=== PATIENT | female | born 1970 | race Caucasian/White ===

== ENCOUNTER 2019-10-21 17:48 | Inpatient (IN) | payer MEDICAID, SELFPAY ==
[2019-10-21] MEDS ORDERED: levETIRAcetam In NaCl (Iso-Os) 1,500 MG in Premix Bag 1 BAG IVPB SCH (18:45)
[2019-10-21] MEDS ORDERED: Cefepime 2 GM in Sodium Chloride 0.9% 100 ML IVPB SCH (18:45)
[2019-10-21 18:46] LABS: Bilirubin Negative (Negative); Blood, Urine Negative (Negative); Clarity Clear (Clear); Glucose, Urine (Dipstick) Normal (Negative); Leukocyte Negative Leu/uL (Negative); Nitrite Negative (Negative); Protein, Urine (Dipstick) 20 mg/dL (Neg-Trace); Urobilinogen Normal mg/dL (Less than 2)
[2019-10-21 18:50] LABS: Pregnancy Test - Urine (BHCG) Negative (Negative); Pregu Control Background? CLEAR/WHITE (CLR/WHITE); Pregu Control Bar Appear? YES (CONTROL BAR); Specific Gravity 1.016 (1.002-1.036)
[2019-10-21] MEDS ORDERED: Lorazepam 2 MG/ML VIAL ONE (19:02)
[2019-10-21 19:04] LABS: ALT (SGPT) 13 U/L (8-55); AST (SGOT) 21 U/L (5-34); Albumin 5.1 g/dL (3.5-5.0); Alkaline Phosphatase 53 U/L (40-110); Anion Gap 20 mmol/L (10-20); BUN (Urea Nitrogen) 14 mg/dL (7.0-18.7); Bilirubin, Total 0.2 mg/dL (0.2-1.2); Calc. Creatinine Clearance 0 mL/min (70-130); Carbon Dioxide 18 mmol/L (22-29); Chloride 107 mmol/L (98-107); Estimated GFR-MDRD 63; Globulin 3.1 g/dL (2.4-3.5); Glucose 99 mg/dL (70-105); Lipase 43 U/L (8-78); Magnesium 1.7 mg/dL (1.6-2.6); Potassium 3.5 mmol/L (3.5-5.1); Protein, Total 8.2 g/dL (6.0-8.3); Sodium 141 mmol/L (136-145)
[2019-10-21 19:20] LABS: #Lymphocytes 0.3 thou/uL (1.20-3.40); #Monocytes 0.2 thou/uL (0.11-0.59); #Neutrophils 3.5 thou/uL (1.40-6.50); %Basophils 0.9 % (0.0-1.0); %Lymphocytes 7.2 % (21.0-51.0); %Monocytes 5.1 % (0.0-10.0); %Neutrophils 85.8 % (42.0-75.0); Hemoglobin 12.6 g/dL (12.0-16.0); Mean Corpuscular Hemoglobin 31.5 pg (27.0-31.0); Mean Corpuscular Volume 92.7 fL (78.0-98.0); Mean Platelet Volume 7.5 fL (7.4-10.4); Platelet Count 217 thou/uL (130-400); RBC Distribution Width 12.8 % (11.5-14.5)
--- NOTE | 2019-10-21 19:21 | CT ---
CT Brain WO Con: 10/21/2019 6:08 PM CLINICAL HISTORY: History of seizures. IMAGING TECHNIQUE: Multiple CT images were obtained of the brain without IV contrast. COMPARISON: None. FINDINGS: Brain: No acute infarct or hemorrhage is evident. No midline shift. Ventricles: Normal. No hydrocephalus.. Skull: Intact.. Visualized Paranasal sinuses: Clear.. Mastoid air cells:Clear. Extracranial soft tissues:Normal. IMPRESSION: No acute intracranial abnormality.
--- NOTE | 2019-10-21 19:23 | RAD ---
Chest AP view INDICATION: Fever and tachycardia COMPARISON: May 26, 2012 FINDINGS: Lungs:The lungs are clear Cardiac silhouette:The cardiomediastinal silhouette appears within normal limits. Pulmonary vasculature:Normal Pleural spaces:No pleural effusion or pneumothorax is demonstrated. Upper abdomen:No abnormality seen. Osseous structures: No acute osseous abnormality. Additional findings:Stable surgical clips within the left axilla IMPRESSION: No acute cardiopulmonary abnormality.
[2019-10-21] MEDS ORDERED: Oseltamivir 75 MG CAP PO SCH (20:00)
[2019-10-21] MEDS ORDERED: Haloperidol Lactate 5 MG/ML VIAL ONE (20:26)
[2019-10-21 22:10] LABS: Lactic Acid 2.3 mmol/L (0.5-2.2)
[2019-10-21] MEDS ORDERED: Acetaminophen 500 MG TAB ONE (22:22)
[2019-10-21] MEDS ORDERED: Ondansetron PF 4 MG/2 ML Vial IVP PRN (23:39)
[2019-10-21] MEDS ORDERED: Lorazepam 2 MG/ML VIAL SLOW IVP PRN (23:48)
[2019-10-22 00:10] VITALS: BMI 21.8
[2019-10-22] MEDS: Fentanyl 100 MCG/2 ML VIAL SLOW IVP PRN ×6 (00:29→21:10)
[2019-10-22] MEDS: Acetaminophen 325 MG TAB PO PRN ×4 (00:30→21:11)
--- NOTE | 2019-10-22 02:46 | HP ---
PRIMARY CARE PHYSICIAN: Unknown. CHIEF COMPLAINT: Witnessed seizure. HISTORY OF PRESENT ILLNESS: This is a 49-year-old female, with past medical history of SLE, remote seizure disorder history, last episode 2-3 years ago, history of melanoma in remission requiring prior lymph node resection and chemotherapy, hypertension, and history of influenza A one year ago, who has been having upper respiratory tract symptoms for the past several days and today while at [employer], had a witnessed tonic-clonic seizure lasting approximately 1 minute in duration associated with bladder incontinence and postictal state, prompting further ED evaluation. According to history obtained from the patient's daughter, ER physician, and limited history from the patient, the patient has been visiting from out of town and has been having cough and congestion symptoms for the past 3 days. She has had sick contacts with family members, grand children, and for the past several days has had headaches associated with nuchal rigidity, myalgias, arthralgias, cough with congestion, and associated photophobia with nausea and mild emesis. She has been taking multiple tablets of Benadryl and ran out of Benadryl and [facility] when headaches intensified and the patient remembers having blurred vision prior to symptoms with difficulty in reading the medication bottles. Daughter notes that her mother had called her while driving as she was confused and could not find the appropriate directions. In the emergency room, Influenza antigen was positive for influenza A. Vitals revealed a T-max of 103.2. Lactic acid level was elevated at 2.9 in the notable postictal state and labs revealed chronic leukopenia of 4.0. Chemistries revealed hyperchloremic anion gap metabolic acidosis. Initial cardiac biomarkers negative x1. Urinalysis is bland. Noncontrast head CT was unremarkable as was the one view chest x-ray. The patient received 500 mg of oral Tylenol, 2 L normal saline bolus, 75 mg oral Tamiflu, 2 g IV cefepime, 1 mg IV Ativan, 1.5 g IV Keppra loading dose, and 2.5 mg of IV haloperidol. At bedside, the patient is initially mildly disoriented, but becomes more coherent during ongoing conversation. She is oriented to person, place, month, and reason for hospitalization. She continues to complain of severe headaches and notes multiple medication allergies. She feels unwell and notes this is not her baseline. She declines lumbar puncture as she has had prior complications from lumbar puncture reportedly with epidural hematoma and has also required lumbar fusion surgery and thus decision was to forego lumbar puncture. REVIEW OF SYSTEMS: Pertinent positives as per HPI. Remainder of review of systems negative. PAST MEDICAL HISTORY: SLE; prior seizure disorder history last 2-3 years ago, previously on Depakote; history of melanoma requiring prior lymph node resection and chemotherapy, in remission; hypertension; history of influenza A, prior bowel obstructions. PAST SURGICAL HISTORY: L4-L5 fusion surgically, cystectomy, hysterectomy, appendectomy. SOCIAL HISTORY: The patient is visiting from out of state. She denies tobacco, alcohol, or illicit drug use. She is ambulatory and functional at baseline. ALLERGIES: EXTENSIVE AND ARE NOT INCLUSIVE BUT INCLUDE STEROIDS, NSAIDS, DEXTROMETHORPHAN, GUAIFENESIN, PENICILLIN, CIPROFLOXACIN, ERYTHROMYCIN, AND MORPHINE. HOME MEDICATIONS: Currently unavailable. We will review once admission medication reconciliation is available. FAMILY HISTORY: Unable to obtain from the patient at this time. PHYSICAL EXAMINATION: VITAL SIGNS: T-max 103.2, pulse 117, respirations 18, blood pressure 143/93, oxygen saturation 100% on room air. GENERAL APPEARANCE: This is a middle-aged female, malaise in appearance and notably uncomfortable, is awake, alert, and oriented. HEENT: Normocephalic, atraumatic. No facial asymmetry. Pupils equally round. Extraocular muscles intact. There is noted photophobia. Dry oral mucous membranes. NECK: There is posterior neck tenderness to palpation. CARDIOVASCULAR SYSTEM: S1, S2. Tachycardic. No harsh murmurs. There is anterior chest wall tenderness to palpation. LUNGS: Nonlabored respiration on bilateral anterior auscultation. Symmetrical chest expansion. No wheezing or rales. ABDOMEN: Soft, nondistended, nonspecific tenderness. Bowel sounds noted. No peritoneal signs appreciated. EXTREMITIES: No edema, cyanosis, or deformities noted. Generalized arthralgias and myalgias appreciated. SKIN: Warm to touch without rash or pallor or abrasion. No petechiae noted. LABORATORY VALUES: WBC 4.0, H and H 12.6/37.0, platelets 217. Sodium 141, potassium 3.5, chloride 107, bicarb 18, glucose 99, BUN and creatinine 14/0.94. Lactic acid initially 2.9, with repeat 2.3. LFTs unremarkable. Troponin negative x1. Albumin 5.1. Urinalysis unremarkable. IMAGING STUDIES: Noncontrast head CT unremarkable. One-view chest x-ray with no acute pathology. Influenza antigen positive for influenza A. ASSESSMENT: 1. Acute encephalopathy, suspected secondary to seizures and possibly acute meningitis. The patient will be admitted as inpatient status and admitted to stroke telemetry floor and will require ongoing monitoring of mentation with seizure precautions. She notes a prior history of strokes last 2-3 years ago and reports prodromal complaints of upper respiratory infection symptoms and is finally positive for influenza . Meningitis of unspecified type has been considered and the patient has refused lumbar puncture due to prior complications from spinal tap complicated with epidural hematoma and reportedly spinal fusion surgery. 2. Sepsis secondary to acute influenza A infection with possible viral meningitis. The patient has received early goal-directed therapy with IV fluid bolus, broad-spectrum IV antibiotics, and antiviral agents. Continue Tamiflu 75 mg twice daily, empiric IV antibiotics for bacterial meningitis coverage and multiple antibiotic allergies are also of note. We will consult ID for further antimicrobial and antiviral management. 3. Suspected meningitis. Viral meningitis is considered noting the patient's prodromal complaints, new onset seizures, and concerns for influenza A. However, with hives, fevers and history of systemic lupus erythematosus, although not on immune suppressants, we will broaden coverage to vancomycin and Rocephin for any bacterial meningitis. Noncontrast head CT unremarkable. We will consult ID for further management. 4. Seizures of unspecified etiology. The patient notes history of seizure disorder, last 2-3 years ago. Previously she was on Depakote. She received Keppra loading dose in the ER. On-call neurologist will be consulted for further management. We will maintain on seizure precautions. Continue p.r.n. IV Ativan for any breakthrough seizures. 5. History of systemic lupus erythematosus. The patient reports she is not on any immune suppressing agents due to multiple allergies. 6. History of melanoma requiring prior lymph node resection and chemotherapy in remission. 7. History of multiple antibiotic allergies. 8. Deep venous thrombosis prophylaxis: Continue on bilateral lower extremity sequential compression devices. 9. Check a.m. labs, 10/22/2019. 10. Code status: Full code. 11. Disposition: Inpatient admission on telemetry monitoring. Job ID: [id number]
[2019-10-22] MEDS: cefTRIAXone\\ROCEPHIN 2 GM in Sodium Chloride 0.9% 100 ML IVPB SCH ×2 (04:27→17:19)
[2019-10-22 05:37] LABS: Anion Gap 20 mmol/L (10-20); BUN (Urea Nitrogen) 12 mg/dL (7.0-18.7); Calc. Creatinine Clearance 80 mL/min (70-130); Calcium 8.7 mg/dL (7.8-10.44); Carbon Dioxide 12 mmol/L (22-29); Chloride 113 mmol/L (98-107); Estimated GFR-MDRD 79; Glucose 92 mg/dL (70-105); Potassium 3.6 mmol/L (3.5-5.1); Sodium 141 mmol/L (136-145)
[2019-10-22 07:34] LABS: Hemoglobin 11.8 g/dL (12.0-16.0); Mean Corpuscular HGB CONC 34.1 g/dL (32.0-36.0); Mean Corpuscular Volume 93.6 fL (78.0-98.0); Mean Platelet Volume 7.4 fL (7.4-10.4); Platelet Count 189 thou/uL (130-400); Red Blood Cell (RBC) Count 3.69 mill/uL (4.20-5.40); White Blood Cell (WBC) Count 5.9 thou/uL (4.8-10.8)
[2019-10-22 07:48] LABS: Band 2 % (5-11); Lymphocytes 6 % (21-51); MDiff Complete? YES; Monocytes 6 % (0-10); Neutrophil 84 % (42-75); Platelet Morphology Comment Appears Adequate; Reactive Lymphocytes 2 % (0-10); Vacuoles SLIGHT
[2019-10-22] MEDS: Oseltamivir 75 MG CAP PO SCH ×2 (08:44→21:11)
--- NOTE | 2019-10-22 11:11 | CON ---
DATE OF TELEMEDICINE CONSULTATION: 10/22/2019 CHIEF COMPLAINT: Headache and feeling sick. HISTORY OF PRESENT ILLNESS: The patient gives limited medical history, but she reports she has had a diagnosis of lupus for a number of years. She has been having three days of congestion and had a seizure again. Her last seizure was about three years ago. She used to be on Depakote at that time and it was stopped, because she stopped having seizures. She does have history of upper respiratory symptoms for the past several days and now is thought to be positive for flu. She had melanoma in remission in the past requiring lymph node resection and chemotherapy. She also has hypertension. At this time, she is reporting she is sick. She feels sick. She has a headache, mostly on the right side with no other neurological deficits. No dizziness or nausea, vomiting, or any weakness reported. No vision symptoms are reported. The patient has been reported to have some confusion during conversation and there is a suspicion that she might have meningitis due to presence of several days of headaches and at this time she is resting, but looks sick. PREVIOUS MEDICAL HISTORY: SLE; prior seizure disorder, last seizure three years ago, she was on Depakote; history of melanoma, requiring prior lymph node dissection and chemotherapy; hypertension; history of influenza A; prior bowel obstruction. 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 SURGICAL HISTORY: L4-L5 fusion, cystectomy, hysterectomy, appendectomy, and melanoma resection. SOCIAL HISTORY: She is from [place], [place] and her daughter moved here and has been living here, therefore, she was visiting her daughter. She does not smoke or drink alcohol. She is very normal and functional at baseline. She had multiple hospitalization per her own history. ALLERGIES: SHE IS ALLERGIC TO STEROIDS, NSAIDS, DEXTROMETHORPHAN, GUAIFENESIN, PENICILLIN, CIPROFLOXACIN, ERYTHROMYCIN, AND MORPHINE. MEDICATIONS: At home, she could recall that she is taking Neurontin at home. Medications per chart as noted. FAMILY HISTORY: Negative for any autoimmune disorder. REVIEW OF SYSTEMS: PULMONARY: Negative for shortness of breath. Positive for cough. GI: Negative for nausea, vomiting, or diarrhea. NEUROLOGICAL: Positive for headache on the right side and feeling sick. DERMATOLOGIC: Negative for any skin lesions. OPHTHALMOLOGIC: Negative for any vision problems. CARDIAC: Negative for palpitations. LABORATORY DATA: Her lab workup right now, white count 5.9, hemoglobin 11.8, hematocrit 34.5, platelet count 189. Chemistry; sodium 141, potassium 3.6, chloride 113, bicarb 12, BUN 12, creatinine 0.77, and her urinalysis is negative. PHYSICAL EXAMINATION: VITAL SIGNS: Temperature 99.7, pulse 108, respiratory rate 20, O2 sats 97%, blood pressure 153/84. GENERAL APPEARANCE: She looks sick and reports she is having constant headaches. She has duncan on the left arm. She may have prior history of cutting herself. CHEST: Clear vesicular breathing. CARDIOVASCULAR: S1, S2 heard. No murmurs. NEUROLOGICAL: Higher intellectual functions, normal orientation to time, place , and person, although she tends to get a little confused. Eventually, she got the month and date approximately right, she states that it was October, and orientation to place was accurate. Cranial nerves 2 through 12 normal extraocular movements. Tongue midline. No atrophy noted. Pupils 4 mm bilaterally. Sensation of face is normal. Normal hearing to finger rub. No facial asymmetry noted, and motor bulk normal. Tone normal. Strength is preserved throughout at 5/5. Deep tendon reflexes were absent. Sensory was normal. Cerebellar, normal [id number]. IMPRESSION: The patient is a 49-year-old lady, who is positive for flu and is under precautions at this time and her complaints are mostly upper respiratory infection along with a headache. She is on Neurontin and Keppra was introduced to the hospital for seizure prophylaxis and at this time, her neurological examination in general is normal; however, she has neck rigidity on exam and her head is tender to touch throughout. She might have some issues with her lupus resurfacing, and in the setting of influenza, some patients can have headaches and myalgias as well. The diagnosis is most consistent with mild encephalopathy likely secondary to influenza A and lupus. RECOMMENDATIONS: 1. Obtain MRI of the brain with and without gadolinium to make sure there is no active inflammation in the [employer] from her lupus. 2. Please proceed with great caution if considering lumbar puncture. The patient does not appear to be disoriented. She might have some meningismus on exam, but she has influenza A which can cause mild confusion. At this time, I am not 100% sure she has meningitis. If there is no other source of infection, we can certainly consider lumbar puncture, but with her previous history of having had spinal cord trauma, it might be high risk. 3. We will follow up the patient with you. Job ID: [id number] [facility]
--- NOTE | 2019-10-22 11:52 | PDOC.HOSPP ---
- Subjective Encounter Date: 10/22/19 Encounter Time: 11:49 Subjective: Ms. Panchal was seen today in follow-up of headache, and altered mental status. She continues to have a headache. She says it started 3 days ago. She notes some photophobia, but no nausea or vomiting. She also notes body aches, and is requesting Dilaudid , as she says the Fentanyl is not helping. - Objective Vital Signs & Weight: Vital Signs (12 hours) Temp Pulse Resp BP BP Pulse Ox 10/22/19 07:38 99.7 F H 108 H 20 153/84 H 97 10/22/19 04:00 99.8 F H 97 16 122/87 96 10/22/19 00:57 100 10/22/19 00:09 103.2 F H 117 H 18 142/93 H 100 Weight Weight 127 lb 1.6 oz I&O: 10/21/19 10/22/19 10/23/19 06:59 06:59 06:59 Output Total 650 Balance -650 Result Diagrams: 10/22/19 07:15 10/22/19 05:04 Hospitalist ROS - Medication Medications: Active Medications Generic Name Dose Route Start Last Admin Trade Name Freq PRN Reason Stop Dose Admin Acetaminophen 650 mg 10/21/19 23:39 10/22/19 07:40 Tylenol PO 650 mg Q4H PRN Administration Headache/Fever/Mild Pain (1-3) Fentanyl 25 mcg 10/21/19 23:42 10/22/19 08:44 Sublimaze SLOW IVP 25 mcg Q4H PRN Administration Severe Pain (7-10) Ceftriaxone Sodium 2 gm/ 100 mls @ 200 mls/hr 10/22/19 04:00 10/22/19 04:27 Sodium Chloride IVPB 100 mls Q12H LIDIA Administration Oseltamivir Phosphate 75 mg 10/22/19 09:00 10/22/19 08:44 Tamiflu PO 10/26/19 21:01 75 mg BID LIDIA Administration - Exam General Appearance: NAD, awake alert Eye: PERRL, anicteric sclera Neck: supple Heart: RRR, no murmur, no gallops, no rubs, normal peripheral pulses Respiratory: CTAB, no wheezes, no rales, no ronchi, normal chest expansion, no tachypnea, normal percussion Gastrointestinal: soft, non-tender, non-distended, normal bowel sounds, no palpable masses, no hepatomegaly Extremities: no cyanosis, no clubbing, no edema Skin: normal turgor Hosp A/P (1) Metabolic encephalopathy Code(s): G93.41 - METABOLIC ENCEPHALOPATHY Status: Acute (2) Influenza A Code(s): J10.1 - FLU DUE TO OTH IDENT INFLUENZA VIRUS W OTH RESP MANIFEST Status: Acute (3) Headache Code(s): R51 - HEADACHE Status: Acute (4) Fever Code(s): R50.9 - FEVER, UNSPECIFIED Status: Acute (5) Hypertension Code(s): I10 - ESSENTIAL (PRIMARY) HYPERTENSION Status: Acute - Plan * Metabolic encphalopathy- resolved * Headache- ? etiology- will await MRI- She says she is allergic to IVP dye- she is not sure if it is from a CT scan or MRI- as a precaution will place her on the IV contrast allergy protocol, and pursue the MRI tomorrow * Influenza- continue Tamiflu * HTN- blood pressure is a bit elevated- but labile- re-start Carvedilol and have Hydralazine available for PRN
[2019-10-22] MEDS ORDERED: hydrALAZINE 25 MG TAB PO PRN (11:57)
[2019-10-22] MEDS: Acetaminophen/Codeine 30-300mg Tablet PO PRN (14:50)
[2019-10-22] MEDS: Gabapentin 400 MG CAP PO SCH ×2 (14:50→21:11)
--- NOTE | 2019-10-22 20:51 | CON ---
DATE OF CONSULTATION: REASON FOR CONSULTATION: Evaluate for possible meningitis. HISTORY OF PRESENT ILLNESS: A 49-year-old with history of stage IV melanoma diagnosed about 13 years ago. At that time, she had a lesion in the arm. She had radical resection and had a lymph node metastases in the left axillary region that was resected as well. After that, she had another melanoma in the skin of the right back, which was taken out and since then, has not had any evidence of recurrence. Also, the patient has chronic seizure history for many many years without any obvious etiology, and she had been on Tegretol and had been in remission of the seizures for the past 3 years. She lives next to [place], [place] and came to visit family members. One of them had influenza and she contracted influenza, for which she had not been vaccinated this year. She developed respiratory illness for the past 4 days and went to [facility] to get some medication and had a seizure activity, was brought to the hospital and admitted. Currently, she is awake. She is having moderate to severe headaches. No visual symptoms. No neck pain. No sore throat, odynophagia, or dysphagia. No back pain. Coughing intermittently. No dyspnea. No chest pain. No abdominal pain or diarrhea. No genitourinary symptoms. No other joint symptoms. MEDICAL HISTORY: Malignant melanoma with lymph node metastases, left axillary region, in remission for the past 13 years. She had another area of melanoma limited to the skin in the right back skin area. Also history of chronic seizure activity, possibly due to systemic lupus erythematosus, although this is not well documented. Some form of colitis, either Crohn's or ulcerative colitis. Mitral valve prolapse. Had a previous spinal tap done many years ago for seizure evaluation and that resulted in CSF leak. She had a patch placed and there was an accidental puncture of the arterial structures in the area and she ended up with compression of the spinal cord and had to have emergency surgical decompression elsewhere. ALLERGIES: CIPRO, COMPAZINE, DEMEROL, ERYTHROMYCIN, MORPHINE, NSAIDS, PENICILLIN, STADOL, TIGAN, AND TORADOL. FAMILY HISTORY: Noncontributory. SOCIAL HISTORY: She does not work at the moment. CURRENT MEDICATIONS: 1. P.r.n. medications. 2. Ceftriaxone. 3. Benadryl. 4. Sublimaze. 5. Neurontin. 6. Apresoline. 7. Keppra. 8. Ativan. 9. Tamiflu. 10. Prednisone. PHYSICAL EXAMINATION: VITAL SIGNS: T-max 103, she is now 99.8; blood pressure 130/83; pulse 78; respirations 16; and O2 saturation 96%. GENERAL: She is alert, oriented, follows commands, pleasant. HEENT: Ocular movements are conjugate. Pupils are equal. Conjunctivae normal. Nasal passages are patent. Oral cavity normal. Numerous teeth in place, in fairly decent shape. NECK: Supple. LUNGS: Symmetric. Clear breath sounds. HEART: S1 and S2, regular rate. ABDOMEN: Soft, not distended or tender. No ascites. : No bladder distention. MUSCULOSKELETAL: No joint inflammatory activity. EXTREMITIES: Moves extremities equally. NEUROLOGIC: Normal neuro examination including cognitive function. LABORATORY STUDIES: White cell count was 4.0 and now 5.9, hemoglobin 11.8, and platelets 189 with 84% neutrophils. Carbon dioxide 18. Liver profile normal. Lactic acid, 2.9 and 2.3. Albumin 5.1. Urinalysis was normal. Influenza was positive for A. Two sets of blood cultures, thus far no growth. IMAGING DATA: She had a chest x-ray, which showed no acute findings. Brain CT with no acute intracranial abnormality. ASSESSMENT: 1. History of stage IV melanoma without evidence of recurrence since 13 years ago. 2. Chronic seizure activity, presumably due to systemic lupus erythematosus, on Tegretol, in remission for 3 years until now. 3. Influenza A infection, recently acquired from family member most likely. 4. Concern with meningitis. DISCUSSION: Typically with bacterial meningitis, there is prompt change in mental status and she is right now widely alert and awake and oriented. She does not have neck stiffness, and I think that the hypothesis of bacterial meningitis is unlikely. Influenza A and B can cause encephalitis, but she does not have any evidence of that. The seizure activity is probably a recurrence from the past history of epilepsy. The history of systemic lupus is not well documented, and she had not been on any immunosuppressive medication on admission. At this point, I would discontinue Rocephin. I would not recommend CSF evaluation at this moment. It looks like she has an MRI scheduled. I guess the main concern would be a melanoma, metastatic to brain and I think it is worthwhile to rule that out. Melanoma can be associated with aseptic meningitis. We will follow up the results of the MRI and go from there. Job ID: [id number] [facility]
[2019-10-22] MEDS ORDERED: predniSONE 50 MG TAB PO SCH (21:00)
[2019-10-22] MEDS: Carvedilol 6.25 MG TAB PO SCH (21:11)
[2019-10-22] MEDS ORDERED: diphenhydrAMINE 50 MG/ML VIAL IVP SCH (22:00)
[2019-10-23] MEDS: Fentanyl 100 MCG/2 ML VIAL SLOW IVP PRN ×5 (01:08→19:52)
[2019-10-23] MEDS ORDERED: diphenhydrAMINE 50 MG/ML VIAL IVP SCH ×2 (04:45→12:15)
[2019-10-23] MEDS: predniSONE 50 MG TAB PO SCH ×2 (05:06→13:01)
[2019-10-23] MEDS ORDERED: diphenhydrAMINE 50 MG CAP PO SCH (09:00)
[2019-10-23] MEDS: Gabapentin 400 MG CAP PO SCH ×3 (09:13→23:01)
[2019-10-23] MEDS: Carvedilol 6.25 MG TAB PO SCH ×2 (09:13→23:01)
[2019-10-23] MEDS: Oseltamivir 75 MG CAP PO SCH ×2 (09:14→23:15)
--- NOTE | 2019-10-23 10:48 | PDOC.HOSPP ---
- Subjective Encounter Date: 10/23/19 Encounter Time: 10:47 Subjective: Ms. Panchal was seen today in follow-up of seizure, and headache and fever. She appears much better today. She is sitting up in bed, not in a position like yesterday. She continues to note a headache, but admits she does feel better. - Objective Vital Signs & Weight: Vital Signs (12 hours) Temp Pulse Resp BP BP Pulse Ox 10/23/19 09:13 148/84 H 10/23/19 04:00 99.3 F 71 14 118/78 96 10/23/19 00:00 99.6 F 83 18 122/89 94 L Weight Weight 127 lb 1.6 oz I&O: 10/22/19 10/23/19 10/24/19 06:59 06:59 06:59 Intake Total 410 485 Output Total 071 288 9559 Balance -650 -340 -515 Result Diagrams: 10/22/19 07:15 10/22/19 05:04 Hospitalist ROS - Medication Medications: Active Medications Generic Name Dose Route Start Last Admin Trade Name Freq PRN Reason Stop Dose Admin Acetaminophen 650 mg 10/21/19 23:39 10/22/19 21:11 Tylenol PO 650 mg Q4H PRN Administration Headache/Fever/Mild Pain (1-3) Acetaminophen/Codeine Phosphate 1 tab 10/22/19 13:51 10/22/19 14:50 Tylenol #3 PO 1 tab BIDPRN PRN Administration Pain Carvedilol 12.5 mg 10/22/19 21:00 10/23/19 09:13 Coreg PO 12.5 mg BID LIDIA Administration Fentanyl 25 mcg 10/21/19 23:42 10/23/19 09:14 Sublimaze SLOW IVP 25 mcg Q4H PRN Administration Severe Pain (7-10) Gabapentin 800 mg 10/22/19 15:00 10/23/19 09:13 Neurontin PO 800 mg TID LIDIA Administration Levetiracetam 500 mg/ Device 100 mls @ 200 mls/hr 10/22/19 21:00 10/23/19 09: 12 IVPB 100 mls BID LIDIA Administration Oseltamivir Phosphate 75 mg 10/22/19 09:00 10/23/19 09:14 Tamiflu PO 10/26/19 21:01 75 mg BID LIDIA Administration Prednisone 50 mg 10/23/19 05:15 10/23/19 05:06 Prednisone PO 10/23/19 11:16 50 mg [id number] LIDIA Administration - Exam Eye: PERRL, anicteric sclera Heart: RRR, no murmur, no gallops, no rubs, normal peripheral pulses Respiratory: CTAB, no wheezes, no rales, no ronchi, normal chest expansion, no tachypnea, normal percussion Gastrointestinal: soft, non-tender, non-distended, normal bowel sounds, no palpable masses, no hepatomegaly Extremities: no cyanosis, no edema Neurological: no focal deficits Psychiatric: normal affect, normal behavior, A&O x 3 Hosp A/P (1) Metabolic encephalopathy Code(s): G93.41 - METABOLIC ENCEPHALOPATHY Status: Acute (2) Influenza A Code(s): J10.1 - FLU DUE TO OTH IDENT INFLUENZA VIRUS W OTH RESP MANIFEST Status: Acute (3) Headache Code(s): R51 - HEADACHE Status: Acute (4) Fever Code(s): R50.9 - FEVER, UNSPECIFIED Status: Acute (5) Hypertension Code(s): I10 - ESSENTIAL (PRIMARY) HYPERTENSION Status: Acute - Plan * Metabolic encphalopathy- resolved * Headache- suspect due to Influenza A * MRI is planned for today * ID input appreciated * Influenza- continue Tamiflu * HTN- blood pressure is better today
[2019-10-23] MEDS: Lorazepam 2 MG/ML VIAL SLOW IVP PRN ×2 (13:59→22:15)
[2019-10-23] MEDS: Acetaminophen/Codeine 30-300mg Tablet PO PRN (18:29)
[2019-10-23] MEDS: Zolpidem Tartrate 5 MG TAB PO PRN (23:01)
[2019-10-23] MEDS: Acetaminophen 325 MG TAB PO PRN (23:14)
[2019-10-24] MEDS: Fentanyl 100 MCG/2 ML VIAL SLOW IVP PRN ×5 (00:26→19:23)
[2019-10-24] MEDS: Acetaminophen 325 MG TAB PO PRN ×3 (03:16→16:23)
[2019-10-24] MEDS: Acetaminophen/Codeine 30-300mg Tablet PO PRN ×2 (07:12→20:58)
--- NOTE | 2019-10-24 09:02 | PDOC.HOSPP ---
- Subjective Encounter Date: 10/24/19 Encounter Time: 09:00 Subjective: Ms. Anderson was seen today in follow-up of Headache fever, and influenza. She was not able to do the MRI due to too much motion. She says her legs were jerking due to the Benadryl. - Objective Vital Signs & Weight: Vital Signs (12 hours) Temp Pulse Resp BP Pulse Ox 10/24/19 07:59 98.1 F 72 16 156/104 H 98 10/23/19 23:09 97.5 F L 65 16 159/61 H 94 L Weight Weight 127 lb 1.6 oz I&O: 10/23/19 10/24/19 10/25/19 06:59 06:59 06:59 Intake Total 410 485 Output Total 750 1000 Balance -340 -515 Result Diagrams: 10/22/19 07:15 10/22/19 05:04 Hospitalist ROS - Medication Medications: Active Medications Generic Name Dose Route Start Last Admin Trade Name Freq PRN Reason Stop Dose Admin Acetaminophen 650 mg 10/21/19 23:39 10/24/19 04:35 Tylenol PO 650 mg Q4H PRN Administration Headache/Fever/Mild Pain (1-3) Acetaminophen/Codeine Phosphate 1 tab 10/22/19 13:51 10/24/19 07:12 Tylenol #3 PO 1 tab BIDPRN PRN Administration Pain Carvedilol 12.5 mg 10/22/19 21:00 10/23/19 23:01 Coreg PO 12.5 mg BID LIDIA Administration Fentanyl 25 mcg 10/21/19 23:42 10/24/19 04:36 Sublimaze SLOW IVP 25 mcg Q4H PRN Administration Severe Pain (7-10) Gabapentin 800 mg 10/22/19 15:00 10/23/19 23:01 Neurontin PO 800 mg TID LIDIA Administration Levetiracetam 500 mg/ Device 100 mls @ 200 mls/hr 10/22/19 21:00 10/23/19 22: 20 IVPB 100 mls BID LIDIA Administration Lorazepam 2 mg 10/22/19 13:50 10/23/19 22:15 Ativan SLOW IVP 2 mg Q8HR PRN Administration Anxiety/Agitation Oseltamivir Phosphate 75 mg 10/22/19 09:00 10/23/19 23:15 Tamiflu PO 10/26/19 21:01 75 mg BID LIDIA Administration Zolpidem Tartrate 10 mg 10/23/19 22:45 10/23/19 23:01 Ambien PO 10 mg HS PRN Administration Insomnia - Exam Eye: PERRL, anicteric sclera Heart: RRR, no murmur, no gallops, no rubs, normal peripheral pulses Respiratory: CTAB, no wheezes, no rales, no ronchi, normal chest expansion, no tachypnea, normal percussion Gastrointestinal: soft, non-tender, non-distended, normal bowel sounds, no palpable masses, no hepatomegaly Extremities: no cyanosis, no edema Neurological: no focal deficits, no new deficit Hosp A/P (1) Metabolic encephalopathy Code(s): G93.41 - METABOLIC ENCEPHALOPATHY Status: Acute (2) Influenza A Code(s): J10.1 - FLU DUE TO OTH IDENT INFLUENZA VIRUS W OTH RESP MANIFEST Status: Acute (3) Headache Code(s): R51 - HEADACHE Status: Acute (4) Fever Code(s): R50.9 - FEVER, UNSPECIFIED Status: Acute (5) Hypertension Code(s): I10 - ESSENTIAL (PRIMARY) HYPERTENSION Status: Acute - Plan * Metabolic encphalopathy- resolved * Headache- suspect due to Influenza A * She was unable to do the MRI * She is clinically stable and there are no danger symptoms with regards to her headache * She has a Primary Care Physician in [facility], ( she says she is visiting her daughter here locally) and she can follow-up with her physician for an outpatient MRI * She is threatening to leave A, and also requesting Fentanyl again according to the nurse- will await Neurology input, and i anticipate discharge home today
[2019-10-24] MEDS: Carvedilol 6.25 MG TAB PO SCH ×2 (09:06→20:59)
[2019-10-24] MEDS: Gabapentin 400 MG CAP PO SCH ×3 (09:07→20:59)
[2019-10-24] MEDS: Oseltamivir 75 MG CAP PO SCH ×2 (09:07→20:59)
--- NOTE | 2019-10-24 09:55 | PDOC.EVN ---
Event Note - Event Note Event Note: Discussed with Neurology- will try again for the MRI, with pre-medication protocol for allergy again and will need sedation under anesthesia.
[2019-10-24] MEDS ORDERED: Benzonatate 100 MG CAP PO PRN (15:58)
[2019-10-24] MEDS: levETIRAcetam 500 MG TAB PO SCH (20:59)
[2019-10-24] MEDS: Zolpidem Tartrate 5 MG TAB PO PRN (22:01)
[2019-10-24] MEDS ORDERED: diphenhydrAMINE 50 MG/ML VIAL IVP SCH (23:30)
[2019-10-25] MEDS: Fentanyl 100 MCG/2 ML VIAL SLOW IVP PRN ×4 (00:35→15:00)
[2019-10-25] MEDS: predniSONE 50 MG TAB PO SCH ×3 (00:36→12:03)
[2019-10-25] MEDS: Lorazepam 2 MG/ML VIAL SLOW IVP PRN ×2 (02:01→10:14)
[2019-10-25] MEDS ORDERED: diphenhydrAMINE 50 MG/ML VIAL IVP SCH ×2 (05:30→12:00)
[2019-10-25] MEDS: Acetaminophen/Codeine 30-300mg Tablet PO PRN (06:17)
[2019-10-25] MEDS: Gabapentin 400 MG CAP PO SCH ×2 (08:50→15:02)
[2019-10-25] MEDS: Carvedilol 6.25 MG TAB PO SCH (08:50)
[2019-10-25] MEDS: levETIRAcetam 500 MG TAB PO SCH (08:50)
[2019-10-25] MEDS ORDERED: Oseltamivir 75 MG CAP PO SCH (09:00)
[2019-10-25] MEDS ORDERED: PROPOFOL 200 MG/20 ML VIAL ONE (09:49)
[2019-10-25] MEDS ORDERED: SUGAMMADEX SODIUM 200 MG/2 ML VIAL ONE (12:36)
[2019-10-25] MEDS ORDERED: Midazolam HCl 2 mg/2 ml Vial ONE (12:36)
[2019-10-25] MEDS ORDERED: Fentanyl 100 MCG/2 ML VIAL ONE (12:36)
[2019-10-25] MEDS ORDERED: Dexamethasone 4 mg/ml Vial ONE (12:36)
[2019-10-25] MEDS ORDERED: hydrALAZINE 20 MG/ML VIAL ONE (14:31)
[2019-10-25 15:09] VITALS: TEMP 98
--- NOTE | 2019-10-25 15:12 | MRI ---
Exam: Brain MRI with and without contrast HISTORY: Melanoma. Lupus. Seizure. COMPARISON: None FINDINGS: Gradient echo sequence: No hemorrhage Calvarium: Appropriate T1 marrow signal intensity Midline brain parenchyma: Unremarkable Cerebrum:No parenchymal mass, mass effect or midline shift. Brain volume, age-appropriate. Cortical g ray-white matter differentiation is preserved. No significant T2 or FLAIR white matter hyperintensities. Symmetric signal intensity of the hippocampi. No evidence of mesial temporal sclero sis. Ventricles: No evidence of hydrocephalus. Sinuses and mastoid air cells: Mild mucosal thickening of the ethmoid air cells. Adequate mastoid air cell aeration Diffusion: Central arterial flow is maintained. Absent restricted diffusion. 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 No path ologic enhancement of the brain parenchyma. IMPRESSION: 1. No pathologic enhancement the brain parenchyma 2. No evidence of mesial temporal sclerosis.
[2019-10-25 16:05] VITALS: BP 122/81
--- NOTE | 2019-10-25 18:47 | DIS ---
DATE OF ADMISSION: 10/21/2019 DATE OF DISCHARGE: 10/25/2019 DISCHARGE DISPOSITION: Home. DISCHARGE DIAGNOSES: 1. Influenza A. 2. Metabolic encephalopathy secondary to influenza. 3. Seizure. 4. Hypertension. 5. History of previous bowel obstruction. DISCHARGE MEDICATIONS: She is to continue: 1. Carvedilol 12.5 mg twice daily. 2. Tylenol No. 3 as needed. 3. Gabapentin 800 mg t.i.d. 4. Ambien 10 mg at bedtime. 5. Keppra 750 mg p.o. twice a day. PROCEDURES DONE DURING ADMISSION: The patient had a CT scan of the brain, which was negative for any acute intracranial abnormality. The patient also had an MRI of the brain showing no pathological enhancement of the brain parenchyma. No evidence of mesial temporal sclerosis. CODE STATUS: Full code. ALLERGIES: PREDNISONE, CIPRO, ERYTHROMYCIN BASE, MORPHINE, COMPAZINE, NSAIDS, AND IV DYE. HOSPITAL COURSE: Ms. Panchal is a pleasant 49-year-old female who presented to the emergency room after she developed high fever as well as had a seizure while in a department store. She was admitted and the initial concern was for meningitis with a fever and seizure and altered mental status. The patient was offered a lumbar puncture in the ER, which she refused. However, over of the course of the next few days, she actually began to clinically improve. She was placed initially on empiric IV antibiotics to cover for the usual meningitis pathogens for her age. ID was consulted and by this time, she was much improved and it was felt that meningitis was an unlikely etiology. However, she did have a history of malignant melanoma and for this reason, she was held in the hospital until she could undergo an MRI. She has a history of allergy to IV contrast and for this reason, she had to be premedicated for the MRI. The MRI turned out to be negative. She was also found to be influenza A positive and this is likely the culprit for the high fever and even the seizure. However as a precaution, she will be sent home on Keppra 750 mg twice daily and she is to follow up with her primary care physician in her local town in [place], [place]. Job ID: [id number]
--- NOTE | 2019-10-25 22:21 | CON ---
DATE OF CONSULTATION: 10/25/2019 CONSULTING PHYSICIAN: Hospitalist Service. IMPRESSION: 1. Recurrent seizure. 2. History of lupus. 3. History of multiple cancers. 4. Peripheral neuropathy. PLAN: 1. Increase Keppra 750 mg for twice a day. 2. Office followup. HISTORY OF PRESENT ILLNESS: Ms. Panchal is a 49-year-old woman with multiple medical problems. She developed a case of the flu and was feeling quite poorly. This resulted in a breakthrough seizure. She had seizures in the past, but had not had any for the last three years. She had a CT scan on admission, which was normal. Her lab work otherwise looked unremarkable. She was seen by Dr. Turcios on video screen and it was recommended that they continue Keppra. She apparently had a second seizure last night while she was awake. She had a slight warning sensation, but apparently had a generalized tonic-clonic seizure. She is quite sore today. She otherwise feels ready to be discharged home. PAST HISTORY: 1. Lupus, melanoma, ovarian, uterine cancers. 2. Hypertension. ALLERGIES: MULTIPLE LISTED. SOCIAL HISTORY: No tobacco or illicit drug use. FAMILY HISTORY: Noncontributory. REVIEW OF SYSTEMS: Ten-system review of systems is otherwise negative. PHYSICAL EXAMINATION: GENERAL: She is a healthy-appearing middle-aged woman, lying in bed, in no acute distress. VITAL SIGNS: Stable. She has been afebrile. HEENT: Pupils equal and reactive. Conjunctivae clear. Oropharynx clear. NECK: Supple. EXTREMITIES: No cyanosis or edema. NEUROLOGIC: She is alert and appropriate. Her speech is fluent and clear. Her exam is nonfocal. Her sensation is diminished in the hands and feet. Gait was not tested. SUMMARY: Middle-aged woman with recurrent seizure since her admission. Increase her Keppra slightly and I would be happy to follow up with her as an outpatient. Job ID: [id number]
--- NOTE | 2019-10-27 04:16 | PQF ---
[facility] [employer] JonnyLEON JAMES SARA HOLDEN MD [id number] CLINICAL DOCUMENTATION CLARIFICATION FORM: POST DISCHARGE Addendum to original discharge summary date: ____ Late entry note date: __ DATE: 10/27/2019 ATTN:SARA HOLDEN MD Please exercise your independent, professional judgment in responding to the clarification form. Clinical indicators are provided on the bottom of this form for your review Please check appropriate box(s) to clarify if the following diagnosis has been ruled in or ruled out: SEPSIS (CDI/Coding list diagnosis here) [ ] Ruled in diagnosis [ ] Continue to treat [ ] Resolved [ X ] Ruled out diagnosis [ ] Cannot rule out diagnosis [ ] Other diagnosis [ ] Unable to determine In addition, please specify: Present on Admission (POA): [ ] Yes [ ] No [ ] Unable to determine For continuity of documentation, please document condition throughout progress notes and discharge summary. Thank You. CLINICAL INDICATORS - SIGNS / SYMPTOMS / LABS Patient admitted with fever and AMS - Documented in DS on 10/25 by SARA HOLDEN MD WBC level 4.0 on 10/21 - Documented in Laboratory Report Elevated Lactic Acid 2.9 18:14 on 10/21 and 2.3 21:46 on 10/21 - Documented in Laboratory Report Pulse rate 117 on 10/22 - Documented in Vital Signs Influenza antigen positive for influenza A - Documented in H&P on 10/21 by Norm Johnson MD Sepsis 2/2 acute influenza A - Documented in H&P on 10/21 by Norm Johnson MD RISK FACTORS Seizure activity - Documented in H&P on 10/21 by Norm Johnson MD Metabolic encephalopathy - Documented in DS on 10/25 by SARA HOLDEN MD HTN TREATMENTS The patient has received early goal directed therapy with IV fluid, empiric IV antibiotics and antiviral agents - Documented in H&P on 10/21 by Norm Johnson MD [employer] [facility] Lead [employer] Winform ViewerCeftriaxone IVPB - Medication report (This form is maintained as a part of the permanent medical record) 2014 [employer]. All Rights Reserved Esther [email or web address] [not provided] MTDD
--- NOTE | 2019-10-29 12:38 | EKG ---
Test Reason : Blood Pressure : / mmHG Vent. Rate : 114 BPM Atrial Rate : 114 BPM P-R Int : 158 ms QRS Dur : 082 ms QT Int : 344 ms P-R-T Axes : 050 062 025 degrees QTc Int : 474 ms Sinus tachycardia Otherwise normal ECG Confirmed by MATHEUS ADRIAN M.D. ([id number]), content editor STEVEN ROMO ([id number]) on 10/29/2019 12:38:20 PM Referred By: Confirmed By:MATHEUS ADRIAN M.D.
== END 2019-10-25 18:05 | disposition home or self-care (01) | DRG 193 ==
LOC: ERS 17:48 → 2SE 23:55
PROVIDERS: ADMIT Hospitalist; ATTEND Hospitalist
DX: J10.1 Influenza due to other identified influenza virus with other respiratory manifestations (principal); G93.41 Metabolic encephalopathy; Z90.710 Acquired absence of both cervix and uterus; Z90.49 Acquired absence of other specified parts of digestive tract; Z88.0 Allergy status to penicillin; Z88.5 Allergy status to narcotic agent; M32.9 Systemic lupus erythematosus, unspecified; G62.9 Polyneuropathy, unspecified; Z85.820 Personal history of malignant melanoma of skin; Z85.42 Personal history of malignant neoplasm of other parts of uterus; G40.409 Other generalized epilepsy and epileptic syndromes, not intractable, without status epilepticus
CPT/HCPCS: 36415; 36416; 51701; 70450; 70553; 71045; 80048; 80053; 81003; 81025; 83605; 83690; 83735; 84443; 84484; 85025; 87040; 87086; 87804; 93005; 96361; 96365; 96367; 96375; A4353; J0360; J0692; J0696; J1100; J1200; J1630; J1953; J2060; J2250; J2704; J3010; J3490; J7512